=== PATIENT | male | born 1995 | race Native Hawaiian/Other Pacific Islander ===

== ENCOUNTER 2017-12-03 20:20 | Emergency (ER) | payer OTHER ==
[~2017-12-03] VITALS: Ht 170.2 cm; Wt 92.5 kg
[2017-12-03 20:25] VITALS: BP 149/79; TEMP 99
== END 2017-12-03 20:50 | disposition home or self-care (01) ==
LOC: ED 20:20
DX: R20.0 Anesthesia of skin (principal); M54.5 Low back pain
CPT/HCPCS: 99281

== ENCOUNTER 2017-12-04 09:09 | Emergency (ER) | payer OTHER ==
[~2017-12-04] VITALS: Ht 175.3 cm; Wt 92.5 kg
[2017-12-04 10:31] LABS: PLATELET COUNT 141 K/uL (142-355); POTASSIUM 3.3 mmol/L (3.6-5.2); SODIUM 133 mmol/L (136-145)
[2017-12-04 13:50] VITALS: BP 107/67; TEMP 99.7
== END 2017-12-04 13:50 | disposition home or self-care (01) ==
LOC: ED 09:09
PROVIDERS: Emergency Medicine
DX: J11.1 Influenza due to unidentified influenza virus with other respiratory manifestations (principal)
CPT/HCPCS: 36415; 80053; 85027; 87081; 87804; 87880; 96361; 96365; 99284; J2543; Q9963

== ENCOUNTER 2017-12-04 16:01 | Outpatient (CLI) | payer OTHER | END 2017-12-04 16:25 | disposition short-term general hospital (02) | LOC: AMB 16:01 | DX: R42 Dizziness and giddiness (principal); R50.9 Fever, unspecified | CPT/HCPCS: A0425; A0429 ==

== ENCOUNTER 2017-12-04 16:26 | Emergency (ER) | payer OTHER ==
[~2017-12-04] VITALS: Ht 175.3 cm; Wt 92.5 kg
[2017-12-04 18:45] VITALS: BP 123/75; TEMP 99.8
== END 2017-12-04 18:45 | disposition home or self-care (01) ==
LOC: ED 16:26
DX: R55 Syncope and collapse (principal)
CPT/HCPCS: 36415; 96365; 96374; 99284; J1885